=== PATIENT | female | born 1985 | race Asian ===

== ENCOUNTER 2017-03-22 09:20 | Day surgery (SDC) | payer OTHER ==
[2017-03-22] MEDS ORDERED: fentaNYL 100 MCG/2 ML INJ IVP ONE (09:34)
[2017-03-22] MEDS ORDERED: ceFAZolin 1 GM in NS 100 ML IV ONE (09:40)
[2017-03-22] MEDS ORDERED: HYDROmorphONE/DILAUDID 1 MG/ML SYR IVP ONE (09:55)
[2017-03-22 09:56] LABS: % IMMATURE GRANULYOCYTES 0.2 % (0.0-1.1); ABSOLUTE IMMATURE GRANULOCYTES 0.01 10^3/uL (0.00-0.10); ADD DIFF? NO; ADD MORPH? NO; ADD SCAN? NO; ATYPICAL LYMPHOCYTE FLAG 10 (0-99); FRAGMENT RBC FLAG 0 (0-99); HEMATOCRIT 42.5 % (38.0-47.0); HEMOGLOBIN 14.3 g/dL (12.6-16.3); LEFT SHIFT FLG 0 (0-99); LIPEMIA HEMOLYSIS FLAG 80 (0-99); MEAN CELL HEMOGLOBIN 29.2 pg (27.9-34.1); MEAN CELL HEMOGLOBIN CONCENTR. 33.6 g/dL (32.4-36.7); MEAN CELL VOLUME 86.7 fL (81.5-99.8); MEAN PLATELET VOLUME 11.5 fL (8.7-11.7); PLATELET CLUMPS FLAG 20 (0-99); PLATELET COUNT 202 10^3/uL (150-400); RED CELL DISTRIBUTION WIDTH 13.2 % (11.5-15.2)
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
[2017-03-22 10:11] LABS: ANION GAP 14 mEq/L (8-16); CALCIUM 9.6 mg/dL (8.5-10.4); CARBON DIOXIDE 19 mEq/l (22-31); CHLORIDE 109 mEq/L (97-110); CREATININE 0.7 mg/dL (0.6-1.0); GLOMERULAR FILTRATION RATE > 60; GLUCOSE 73 mg/dL (70-100); POTASSIUM 4.1 mEq/L (3.5-5.2); SODIUM 142 mEq/L (134-144)
[2017-03-22 10:14] LABS: INR 1.07 (0.83-1.16); PROTIME(PATIENT) 13.8 SEC (12.0-15.0)
[2017-03-22 10:16] LABS: APTT 31.9 SEC (23.0-38.0)
[2017-03-22] MEDS ORDERED: BUPIVACAINE 0.5% 30 ML SDV ONE (11:26)
[2017-03-22] MEDS ORDERED: LIDOCAINE 1% 300 MG/30 ML SDV ONE (11:27)
[2017-03-22] MEDS ORDERED: MIDAZOLAM 2 MG/2 ML VIAL IVP ONE (11:32)
--- NOTE | 2017-03-22 11:32 | PDANEPAE ---
ANE History of Present Illness hand ANE Past Medical History - Cardiovascular History Hx Hypertension: No Hx Arrhythmias: No Hx Chest Pain: No Hx Coronary Artery / Peripheral Vascular Disease: No Hx CHF / Valvular Disease: No Hx Palpitations: No - Pulmonary History Hx COPD: No Hx Asthma/Reactive Airway Disease: No Hx Recent Upper Respiratory Infection: No Hx Oxygen in Use at Home: No Hx Sleep Apnea: No - Endocrine History Hx Diabetes: No - Renal History Hx Renal Disorders: No - Liver History Hx Hepatic Disorders: No ANE Review of Systems - Exercise capacity METS (RN): 4 METS ANE Patient History - Allergies Allergies/Adverse Reactions: No Known Allergies Allergy (Verified 04/10/16 16:44) - NPO status NPO Since - Liquids (Date): 03/22/17 NPO Since - Liquids (Time): 07:00 NPO Since - Solids (Date): 03/22/17 NPO Since - Solids (Time): 07:00 - Anes Hx Anes Hx: no prior problems - Smoking Hx Smoking Status: Never smoked ANE Labs/Vital Signs - Labs Result Diagrams: 03/22/17 09:30 03/22/17 09:30 - Vital Signs Blood Pressure: 110/84 Heart Rate: 60 Respiratory Rate: 18 O2 Sat (%): 97 Weight: 54.431 kg ANE Physical Exam - Airway Mallampati Score: Class 2 Mouth exam: normal dental/mouth exam - Pulmonary Pulmonary: no respiratory distress - Cardiovascular Cardiovascular: regular rate and rhythym - ASA Status ASA Status: I, E ANE Anesthesia Plan Anesthesia Plan: general endotracheal anesthesia
[2017-03-22] MEDS ORDERED: MIDAZOLAM 2 MG/2 ML VIAL ONE (11:38)
[2017-03-22] MEDS ORDERED: ROCURONIUM 50 MG/5 ML VIAL ONE (11:40)
[2017-03-22] MEDS ORDERED: DEXAMETHASONE 4 MG/ML VIAL ONE (11:40)
[2017-03-22] MEDS ORDERED: LIDOCAINE 2% 5 ML SDV ONE (11:40)
[2017-03-22] MEDS ORDERED: KETOROLAC 30 MG/1 ML SDV ONE (11:40)
[2017-03-22] MEDS ORDERED: ONDANSETRON 4 MG/2 ML VIAL ONE (11:40)
[2017-03-22] MEDS ORDERED: fentaNYL 100 MCG/2 ML INJ ONE (11:40)
[2017-03-22] MEDS ORDERED: PROPOFOL 200 MG/20 ML VIAL ONE (11:41)
[2017-03-22] MEDS ORDERED: ESMOLOL HCL 100 MG/10 ML VIAL IV ONE (12:26)
[2017-03-22] MEDS ORDERED: MEPERIDINE 25 MG/ML SYR IVP PRN (13:47)
[2017-03-22] MEDS ORDERED: HYDROCODONE/APAP 5/325 TAB PO PRN (13:47)
[2017-03-22] MEDS ORDERED: NALOXONE HCL 0.4 MG/ML INJ IVP PRN (13:47)
[2017-03-22] MEDS ORDERED: LR 500 ML IV PRN (13:47)
[2017-03-22] MEDS ORDERED: HYDROmorphONE/DILAUDID 1 MG/ML SYR IVP PRN (13:47)
[2017-03-22] MEDS ORDERED: ONDANSETRON 4 MG/2 ML VIAL IVP PRN (13:47)
[2017-03-22] MEDS ORDERED: fentaNYL 100 MCG/2 ML INJ IVP PRN (13:47)
[2017-03-22] MEDS ORDERED: SUGAMMADEX SODIUM 200 MG/2 ML VIAL IVP ONE (13:48)
--- NOTE | 2017-03-22 14:37 | POSTANESTH ---
Post Anesthetic Evaluation Cardiovascular Status: Normal, Stable Respiratory Status: Normal, Stable Level of Consciousness/Mental Status: Can Participate in Eval Pain Control: Adequate, Prn Tx Ordered Nausea/Vomiting Control: Adequate, Prn Tx Ordered Complications Possibly Related to Anesthesia: None Noted
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
--- NOTE | 2017-03-22 14:42 | POSTOPPROG ---
Post Op Note Date of Operation: 03/22/17 Surgeon: Clarence Wynn Cigarette Lighter Repairer: None Anesthesiologist: Ori Andino MD Anesthesia: GET(General Endotracheal) Pre-op Diagnosis: Left index open MC neck and head fracture, left second and first web lac Post-op Diagnosis: Left index open MC neck and head fracture, left second and first web lac Indication: Left index open MC neck and head fracture, left second and first web lac Procedure: Left index MC irrigation and debridement with ORIF, laceration closures Inf/Abcess present in the surg proc area at time of surgery?: No Depth: Deep Incisional (Fascial) EBL: Minimal Complications: None
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
[2017-03-22 15:35] VITALS: PULSE 91; TEMP 98.1
[2017-03-22 15:53] VITALS: O2SAT 97
[2017-03-22] MEDS ORDERED: HYDROCODONE/APAP 5/325 TAB ONE (16:24)
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
[2017-03-22 17:20] VITALS: BP 122/86; RESP 16
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
== END 2017-03-22 17:20 | disposition home or self-care (01) ==
LOC: EDUNIT# → FSGY 11:16
PROVIDERS: ATTEND Orthopaedic Surgery Hand Surgery
PROC: 0LS80ZZ Reposition Left Hand Tendon, Open Approach (ICD-10-PCS; principal; 2017-03-22 11:45)
PROC: 0PSQ04Z Reposition Left Metacarpal with Internal Fixation Device, Open Approach (ICD-10-PCS; principal; 2017-03-22 11:45)
DX: S62.331B Displaced fracture of neck of second metacarpal bone, left hand, initial encounter for open fracture (principal); S62.391B Other fracture of second metacarpal bone, left hand, initial encounter for open fracture; S63.261A Dislocation of metacarpophalangeal joint of left index finger, initial encounter; S61.412A Laceration without foreign body of left hand, initial encounter; V43.62XA Car passenger injured in collision with other type car in traffic accident, initial encounter; Y92.414 Local residential or business street as the place of occurrence of the external cause
CPT/HCPCS: 26437; 26615; 70450; 71010; 72125; 73130; 96374; 96375; 99285; C1769; J0690; J1100; J1170; J1885; J2250; J2405; J2704; J3010

== ENCOUNTER → 2017-07-08 | Outpatient (CLI) | payer OTHER | LOC: CIMAGING 14:19 | PROVIDERS: ATTEND Physician Assistant | DX: S62.391D Other fracture of second metacarpal bone, left hand, subsequent encounter for fracture with routine healing (principal) ==

== ENCOUNTER 2017-08-14 21:33 | Emergency (ER) | payer OTHER ==
[2017-08-14 21:48] VITALS: RESP 16; TEMP 98.1
[2017-08-14] MEDS ORDERED: ONDANSETRON 4 MG/2 ML VIAL IVP ONE (21:49)
[2017-08-14] MEDS ORDERED: NS 1,000 ML IV ONE (21:49)
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
[2017-08-14] MEDS ORDERED: ONDANSETRON 4MG PREPACK#2 BTL TAKEHOME ONE (22:35)
[2017-08-14 22:36] VITALS: O2SAT 96
[2017-08-14 23:12] VITALS: BP 120/84; PULSE 100
== END 2017-08-14 23:00 | disposition home or self-care (01) ==
LOC: CED 21:33
DX: K52.9 Noninfective gastroenteritis and colitis, unspecified (principal); E86.9 Volume depletion, unspecified
CPT/HCPCS: 96374; J2405